=== PATIENT | female | born 1955 | race African-American/Black ===

== ENCOUNTER 2020-12-30 01:12 | Observation (INO) | payer OTHER ==
[2020-12-30] MEDS ORDERED: VALSARTAN 80 MG TABLET PO ONE (02:08)
[2020-12-30] MEDS ORDERED: VALSARTAN 80 MG TABLET ONE (02:14)
[2020-12-30 03:19] LABS: BASO % 0.6 % (0-2.0); EOS % 0.8 % (0-4.5); HEMOGLOBIN 15.2 GM/dL (10.7-15.3); MCH 33.4 pg (25.7-33.7); MCHC 34.4 g/dl (32.0-36.0); MONO % 15.4 % (3.8-10.2); NEUT % 66.2 % (42.8-82.8); PLATELET COUNT 264 10^3/uL (134-434); RBC 4.54 M/mm3 (3.60-5.2); RDW 14.1 % (11.6-15.6); WHITE BLOOD COUNT 9.4 K/mm3 (4.0-10.0)
[2020-12-30 03:28] LABS: INR 0.94 (0.83-1.09); PROTHROMBIN TIME (PATIENT) 11.6 SEC (9.7-13.0)
[2020-12-30 03:39] LABS: CHLORIDE 96 mmol/L (98-107); SODIUM 137 mmol/L (136-145)
[2020-12-30 03:41] LABS: BLOOD UREA NITROGEN 11.6 mg/dL (7-18); CALCIUM 9.4 mg/dL (8.5-10.1)
[2020-12-30 03:42] LABS: ALBUMIN 4.6 g/dl (3.4-5.0); ANION GAP 10 MMOL/L (8-16); CO2 32 mmol/L (21-32); GLUCOSE,RANDOM 121 mg/dL (74-106); LIPASE 98 U/L (73-393)
[2020-12-30 03:45] LABS: CREATININE 0.9 mg/dL (0.55-1.3); SGOT/AST 39 U/L (15-37); SGPT/ALT 41 U/L (13-61)
[2020-12-30 03:46] LABS: BILIRUBIN,TOTAL 0.8 mg/dL (0.2-1)
[2020-12-30 03:47] LABS: ALK PHOS 86 U/L (45-117)
[2020-12-30 07:00] LABS: LIPASE 95 U/L (73-393)
[2020-12-30] MEDS ORDERED: ACETAMINOPHEN 325 MG TABLET (FP) PO PRN (07:35)
[2020-12-30] MEDS ORDERED: LACTATED RINGERS SOLUTION 1,000 ML/1,000 ML INFUS.BAG IV SCH (08:15)
[2020-12-30] MEDS ORDERED: ENOXAPARIN NA (PORCINE) 40 MG/0.4 ML DISP.SYRIN SQ ONE (09:48)
[2020-12-30] MEDS: ENOXAPARIN NA (PORCINE) 40 MG/0.4 ML DISP.SYRIN SQ SCH (10:00)
[2020-12-30 16:28] VITALS: BMI 16.3
[2020-12-30 20:39] LABS: EPI CELLS 6 /uL (0-25.1); HYALINE CASTS 1 /uL (0-3.1); PH,URINE 6.5 (5.0-8.0); URINE APPEARANCE CLEAR; URINE BACTERIA 417 /uL (0-1359); URINE BILIRUBIN NEGATIVE (NEGATIVE); URINE COLOR YELLOW; URINE GLUCOSE (UA) NEGATIVE (NEGATIVE); URINE KETONE TRACE (NEGATIVE); URINE LEUK ESTERASE 1+ (NEGATIVE); URINE NITRITE NEGATIVE (NEGATIVE); URINE PROTEIN TRACE (NEGATIVE); URINE RBC 6 /uL (0-23.9); URINE WBC 46 /uL (0-25.8)
[2020-12-31 09:23] LABS: HEMOGLOBIN 13.9 GM/dL (10.7-15.3); MCHC 34.7 g/dl (32.0-36.0); MEAN PLT VOLUME 9.6 fl (7.5-11.1); PLATELET COUNT 217 10^3/uL (134-434); RBC 4.08 M/mm3 (3.60-5.2); RDW 13.6 % (11.6-15.6); WHITE BLOOD COUNT 4.7 K/mm3 (4.0-10.0)
[2020-12-31 09:32] LABS: CALCIUM 8.5 mg/dL (8.5-10.1)
[2020-12-31 09:33] LABS: BLOOD UREA NITROGEN 5.7 mg/dL (7-18); MAGNESIUM 1.9 mg/dL (1.8-2.4)
[2020-12-31 09:36] LABS: CREATININE 0.7 mg/dL (0.55-1.3)
[2020-12-31 09:37] LABS: BILIRUBIN,TOTAL 0.8 mg/dL (0.2-1); TOT PROT 6.2 g/dl (6.4-8.2)
[2020-12-31 09:40] LABS: ALBUMIN 3.6 g/dl (3.4-5.0)
[2020-12-31] MEDS: ENOXAPARIN NA (PORCINE) 40 MG/0.4 ML DISP.SYRIN SQ SCH ×2 (09:56→15:58)
[2020-12-31 10:20] LABS: ANISOCYTOSIS 0; MACROCYTOSIS 0; PLATELET ESTIMATE NORMAL
[2020-12-31 13:48] LABS: CHOLESTEROL 189 mg/dL (50-200); HDL CHOLESTEROL 73 mg/dL (40-60); LDL CHOLESTEROL (ONLY DFH) 98 mg/dl (5-100); TRIGLYCERIDES 90 mg/dL (0-150)
[2020-12-31 15:26] VITALS: BP 162/97; PULSE 64; TEMP 99.2
== END 2020-12-31 17:17 | disposition home or self-care (01) ==
LOC: JER 01:12 → JERBED 05:10 → UNDOADMOB 05:10 → INTOOBSV 05:10 → JERBED 08:09 → J4W 10:46
PROVIDERS: ADMIT Student in an Organized Health Care Education/Training Program; ATTEND Internal Medicine
PROC: 3E013GC Introduction of Other Therapeutic Substance into Subcutaneous Tissue, Percutaneous Approach (ICD-10-PCS; principal; 2020-12-30)
DX: R55 Syncope and collapse (principal); I16.0 Hypertensive urgency; I10 Essential (primary) hypertension; E78.5 Hyperlipidemia, unspecified; F17.210 Nicotine dependence, cigarettes, uncomplicated; Z88.4 Allergy status to anesthetic agent; R63.4 Abnormal weight loss; Z68.1 Body mass index [BMI] 19.9 or less, adult; R35.0 Frequency of micturition; M62.82 Rhabdomyolysis; F10.10 Alcohol abuse, uncomplicated; F14.10 Cocaine abuse, uncomplicated
CPT/HCPCS: 36415; 71045-TC-FY; 80053; 80061; 81003; 82550; 82553; 83690; 83735; 84484; 85025; 85610; 87086; 93005; 93010; 96372; 97116-GP; 97161-GP; 99285-25; C9803; G0378; U0003; U0005

== ENCOUNTER 2022-04-27 06:06 | Emergency (ER) | payer OTHER ==
[2022-04-27 06:43] VITALS: BP 110/70; PULSE 77; RESP 18; TEMP 97; BMI 24.4
[2022-04-27] MEDS ORDERED: ACETAMINOPHEN 500 MG TABLET (FP) PO ONE (07:07)
[2022-04-27] MEDS ORDERED: ACETAMINOPHEN 325 MG TABLET (FP) ONE (07:26)
[2022-04-27 08:43] LABS: URINE APPEARANCE CLEAR; URINE BILIRUBIN NEGATIVE (NEGATIVE); URINE COLOR YELLOW; URINE GLUCOSE (UA) NEGATIVE (NEGATIVE); URINE KETONE NEGATIVE (NEGATIVE); URINE LEUK ESTERASE NEGATIVE (NEGATIVE); URINE NITRITE NEGATIVE (NEGATIVE); URINE PROTEIN NEGATIVE (NEGATIVE); URINE UROBILINOGEN 0.2 mg/dL (0.2-1.0)
[2022-04-27 09:09] LABS: EPI CELLS 4.8 /uL (0-25.1); HYALINE CASTS 0.1 /uL (0-3.1); URINE RBC 10.4 /uL (0-23.9); URINE WBC 14.9 /uL (0-25.8)
== END 2022-04-27 10:00 | disposition home or self-care (01) ==
LOC: JER 06:06
PROC: 3E0337Z Introduction of Electrolytic and Water Balance Substance into Peripheral Vein, Percutaneous Approach (ICD-10-PCS; principal; 2022-04-27)
DX: S82.045A Nondisplaced comminuted fracture of left patella, initial encounter for closed fracture (principal); W01.0XXA Fall on same level from slipping, tripping and stumbling without subsequent striking against object, initial encounter
CPT/HCPCS: 70450-TC; 72125-TC; 73552-TC-LT-FY; 73560-TC-LT-FY; 73590-TC-LT-FY; 81003; 87086; 99285-25

== ENCOUNTER 2023-09-13 21:46 | Observation (INO) | payer OTHER ==
[2023-09-13 22:15] LABS: BASO % 0.9 % (0-2.0); EOS % 3.7 % (0-4.5); HEMATOCRIT 43.6 % (32.4-45.2); HEMOGLOBIN 14.9 GM/dL (10.7-15.3); LYMPH % 30.8 % (8-40); MCH 32.9 pg (25.7-33.7); MCHC 34.2 g/dl (32.0-36.0); MONO % 16.8 % (3.8-10.2); NEUT % 47.8 % (42.8-82.8); PLATELET COUNT 276 10^3/uL (134-434); RBC 4.54 M/mm3 (3.60-5.2); RDW 14.6 % (11.6-15.6); WHITE BLOOD COUNT 6.2 K/mm3 (4.0-10.0)
[2023-09-13 22:18] VITALS: BMI 16.0
[2023-09-13 22:24] LABS: INR 0.98 (0.83-1.09); PROTHROMBIN TIME (PATIENT) 11.1 SEC (9.7-13.0)
[2023-09-13 22:27] LABS: ACTIVATED PTT 36.3 SECONDS (25.2-36.5)
[2023-09-13 22:33] LABS: POTASSIUM 3.3 mmol/L (3.5-5.1)
[2023-09-13 22:37] LABS: BLOOD UREA NITROGEN 9.8 mg/dL (7-18); CALCIUM 9.9 mg/dL (8.5-10.1)
[2023-09-13 22:41] LABS: BILIRUBIN,TOTAL 0.8 mg/dL (0.2-1); CREATININE 0.8 mg/dL (0.55-1.3); TOT PROT 7.1 g/dl (6.4-8.2)
[2023-09-13] MEDS ORDERED: POTASSIUM CHLORIDE TABS 20 MEQ TABLET.ER (FP) PO ONE (23:17)
[2023-09-13] MEDS: POTASSIUM CHLORIDE TABS 20 MEQ TABLET.ER (FP) PO ONE (23:19)
[2023-09-14] MEDS ORDERED: LORazepam 1 MG TABLET PO PRN (05:12)
[2023-09-14] MEDS: LORazepam 1 MG TABLET PO SCH (06:22)
[2023-09-14] MEDS: ACAMPROSATE CALCIUM 333 MG TABLET.DR PO SCH (06:25)
[2023-09-14 08:37] LABS: HEMATOCRIT 41.9 % (32.4-45.2); HEMOGLOBIN 14.6 GM/dL (10.7-15.3); MCH 33.4 pg (25.7-33.7); MCHC 34.8 g/dl (32.0-36.0); MEAN PLT VOLUME 8.4 fl (7.5-11.1); PLATELET COUNT 271 10^3/uL (134-434); RBC 4.36 M/mm3 (3.60-5.2); RDW 14.5 % (11.6-15.6); WHITE BLOOD COUNT 5.7 K/mm3 (4.0-10.0)
[2023-09-14 09:01] LABS: POTASSIUM 3.7 mmol/L (3.5-5.1)
[2023-09-14] MEDS: amLODIPine BESYLATE 5 MG TABLET (FP) PO SCH (09:07)
[2023-09-14] MEDS: ASPIRIN 81 MG CHEWABLE TABLETS PO SCH (09:07)
[2023-09-14] MEDS: ENOXAPARIN NA (PORCINE) 40 MG/0.4 ML DISP.SYRIN SQ SCH (09:08)
[2023-09-14 09:15] LABS: CALCIUM 9.2 mg/dL (8.5-10.1)
[2023-09-14 09:16] LABS: ALBUMIN 3.5 g/dl (3.4-5.0); BLOOD UREA NITROGEN 11.8 mg/dL (7-18); MAGNESIUM 2.2 mg/dL (1.8-2.4)
[2023-09-14 09:18] LABS: CREATININE 0.6 mg/dL (0.55-1.3); PHOSPHOROUS 3.9 mg/dL (2.5-4.9)
[2023-09-14 09:19] LABS: TOT PROT 6.6 g/dl (6.4-8.2)
[2023-09-14 09:22] LABS: BILIRUBIN,TOTAL 1.1 mg/dL (0.2-1)
[2023-09-14] MEDS ORDERED: amLODIPine BESYLATE 10 MG TABLET (FP) PO SCH (10:00)
[2023-09-14 12:48] LABS: METHADONE, UR NEGATIVE (NEGATIVE); PHENCYCLIDINE,URINE NEGATIVE (NEGATIVE); URINE BENZODIAZEPINES NEGATIVE (NEGATIVE)
[2023-09-14 12:49] LABS: OPIATES, URI NEGATIVE (NEGATIVE); URINE AMPHETAMINES NEGATIVE (NEGATIVE); URINE BARBITURATES NEGATIVE (NEGATIVE)
[2023-09-14 12:58] LABS: COCAINE, UR POSITIVE (NEGATIVE)
[2023-09-15] MEDS: LORazepam 1 MG TABLET PO SCH ×2 (05:43→17:31)
[2023-09-15] MEDS ORDERED: LORazepam 1 MG TABLET PO PRN (16:13)
[2023-09-15] MEDS: ACAMPROSATE CALCIUM 333 MG TABLET.DR PO SCH (23:12)
[2023-09-16] MEDS ORDERED: LORazepam 0.5 MG TABLET PO PRN ×2
[2023-09-16] MEDS ORDERED: LORazepam 0.5 MG TABLET PO SCH (05:00)
[2023-09-16] MEDS: LORazepam 0.5 MG TABLET PO SCH (05:35)
[2023-09-16 08:17] LABS: BASO % 1.1 % (0-2.0); EOS % 4.3 % (0-4.5); HEMATOCRIT 39.9 % (32.4-45.2); HEMOGLOBIN 13.7 GM/dL (10.7-15.3); LYMPH % 34.5 % (8-40); MCH 33.4 pg (25.7-33.7); MCHC 34.4 g/dl (32.0-36.0); MEAN CELL VOLUME 97.3 fl (80-96); MEAN PLT VOLUME 8.8 fl (7.5-11.1); MONO % 14.8 % (3.8-10.2); NEUT % 45.3 % (42.8-82.8); PLATELET COUNT 238 10^3/uL (134-434); RDW 14.4 % (11.6-15.6); WHITE BLOOD COUNT 5.1 K/mm3 (4.0-10.0)
[2023-09-16 08:29] LABS: POTASSIUM 3.5 mmol/L (3.5-5.1)
[2023-09-16 08:55] LABS: CALCIUM 8.9 mg/dL (8.5-10.1)
[2023-09-16 08:56] LABS: ALBUMIN 3.3 g/dl (3.4-5.0); BLOOD UREA NITROGEN 8.8 mg/dL (7-18); MAGNESIUM 2.2 mg/dL (1.8-2.4)
[2023-09-16 08:59] LABS: CREATININE 0.5 mg/dL (0.55-1.3)
[2023-09-16 09:01] LABS: TOT PROT 6.2 g/dl (6.4-8.2)
[2023-09-16 09:02] LABS: BILIRUBIN,TOTAL 0.8 mg/dL (0.2-1)
[2023-09-16] MEDS: ENOXAPARIN NA (PORCINE) 40 MG/0.4 ML DISP.SYRIN SQ SCH (10:39)
[2023-09-16] MEDS: amLODIPine BESYLATE 5 MG TABLET (FP) PO SCH (10:39)
[2023-09-16] MEDS: ASPIRIN 81 MG CHEWABLE TABLETS PO SCH (10:39)
[2023-09-16] MEDS ORDERED: MAGNESIUM HYDROX 2400MG/30ML ORAL SUSPENSION 30 ML CUP PO PRN (17:43)
[2023-09-16] MEDS ORDERED: ACETAMINOPHEN 325 MG TABLET (FP) PO PRN (18:56)
[2023-09-16] MEDS ORDERED: IBUPROFEN 600 MG TABLET (FP) PO PRN (18:57)
[2023-09-16] MEDS: SENNOSIDES/DOCUSATE COMBO (SENNA PLUS) TABLET (UD) PO SCH (21:11)
[2023-09-16] MEDS: PANTOPRAZOLE 40 MG TABLET PO SCH (21:11)
[2023-09-16 22:09] VITALS: RESP 18
[2023-09-17] MEDS ORDERED: LORazepam 0.5 MG TABLET PO ONE (05:00)
[2023-09-17] MEDS: LORazepam 0.5 MG TABLET PO ONE (05:18)
[2023-09-17 05:24] VITALS: BP 125/71; PULSE 72; TEMP 98.1
[2023-09-17] MEDS: POLYETHYLENE GLYCOL (HEALTHYLAX) 3350 17 GM PACKET PO SCH (10:08)
== END 2023-09-17 13:05 | disposition home or self-care (01) ==
LOC: JER 21:46 → JERBED 09-14 01:24 → J4S 09-14 03:18 → J7W 09-15 15:43
PROVIDERS: ADMIT Internal Medicine; ATTEND Internal Medicine
PROC: 3E023GC Introduction of Other Therapeutic Substance into Muscle, Percutaneous Approach (ICD-10-PCS; principal; 2023-09-14)
DX: R07.9 Chest pain, unspecified (principal); R00.2 Palpitations; I10 Essential (primary) hypertension; E78.5 Hyperlipidemia, unspecified; E43 Unspecified severe protein-calorie malnutrition; Z68.1 Body mass index [BMI] 19.9 or less, adult; F10.99 Alcohol use, unspecified with unspecified alcohol-induced disorder; F12.90 Cannabis use, unspecified, uncomplicated; F14.21 Cocaine dependence, in remission; E87.6 Hypokalemia; F17.210 Nicotine dependence, cigarettes, uncomplicated; Z88.8 Allergy status to other drugs, medicaments and biological substances
CPT/HCPCS: 36415; 71046-TC-FY; 80053; 80061; 80307; 83735; 84100; 84443; 84484; 85025; 85027; 85379; 85610; 85730; 93005; 93010; 93306-TC; 96372; 97116-GP; 97161-GP; 99285-25; G0378